=== PATIENT | female | born 1960 | race Caucasian/White ===

== ENCOUNTER 2018-05-17 00:20 | Inpatient (IN) ==
[2018-05-17] MEDS ORDERED: Acetaminophen 325 MG Tablet PO PRN (05:35)
--- NOTE | 2018-05-17 10:17 | CT ---
EXAM DATE: 05/17/2018 10:10 AM EST AGE/SEX: 58 years / Female INDICATIONS: Short of breath. CLINICAL DATA: This is the patient's initial encounter. Patient reports that signs and symptoms have been present for 3 days and indicates a pain score of 0/10. MEDICAL/SURGICAL HISTORY: Chronic obstructive pulmonary disease. . Knee surgery. RADIATION DOSE: 10.11 CTDI (mGy) COMPARISON: [facility], CHEST 1V SINGLE AP, 05/17/2018. . TECHNIQUE: Volumetric scanning was performed using a multi-row detector CT scanner during bolus infu kelly of 65 ml Omnipaque 350 (iohexol) nonionic water-soluble contrast as a single exam dose. The bettye a was post processed with a variety of visualization algorithms including full volume maximum intensi ty projection and sliding thin slab reformation. Using automated exposure control and adjustment of the mA and/or kV according to patient size, radiation dose was kept as low as reasonably achievable t o obtain optimal diagnostic quality images. DICOM format image data is available electronically for review and comparison. FINDINGS: Right apical density is present measures 3.2 cm in size probable area of scar, however underlying mas s is difficult to exclude. There is also irregular density in the left apex of the lung extending to the pleural surfaces probable scar as well. Slight atelectasis and/or infiltrate is seen right middle lobe. There is no evidence of PE for technique. There is no pleural effusion. No appreciable pathological adenopathy is seen within the mediastinum. CONCLUSION: There is slight atelectasis and/or infiltrate right middle lobe and probable scar in the apices of the lungs. Repeat noncontrast chest CT is recommended in 6 months. Electronically signed by: Bruno Olivia MD Board Certified Radiologist 05/17/2018 10:16 AM EST
--- NOTE | 2018-05-17 12:04 | P.HPIM ---
History of Present Illness Primary Care Physician: No Primary Care Physician Chief Complaint: Respiratory Distress History of Present Illness: Mrs. Parker is a 58 year old female. She has a past medical history of chronic respiratory failure, and she is oxygen dependent at baseline. Currently she has come in secondary to complications of influenza. COPD exacerbation is present. Acute hypoxia has been present. She is unable to lay flat and to make herself comfortable and breathing she is in a tripod position. No other complaints today. Inpatient Certification Inpatient Certification: I certify that the inpatient services were ordered in accordance with Medicare regulations governing the order. This includes certification that hospital inpatient services are reasonable and necessary and in the case of services not specified as inpatient-only under 42 CFR 419.22(n), that they are appropriately provided as inpatient services in accordance to with the 2-midnight benchmark under 43 CFR 412.3(e) Estimated Total Length of Stay (Days): 2 Plans for Post Hospital Care: Home Review of Systems Constitutional: No fevers, no chills no night sweats, no fatigue, no weakness Eyes: No eye pain, no blurry vision, no loss of vision ENT: No sore throat, no ear pain, no rhinorrhea Cardiovascular: No chest pain, no tachycardia, no palpitations, no syncope Respiratory: Shortness of breath, wheezing, cough, respiratory distress Gastrointestinal: No abdominal pain, no black tarry stools, no bright red blood per rectum, no vomiting, no diarrhea Musculoskeletal: No joint pain, no muscle cramps, no stiffness Integumentary: No rash, no ulcers, no drainage Neurologic: No sensory loss, no loss of motor function, no dizziness Psychiatric: No behavioral changes, no hallucinations, no suicidal ideations [facility] Medical History Medical History COPD (chronic obstructive pulmonary disease) (Acute) Menopausal state (Acute) Surgical History Surgical History H/O knee surgery (Acute) Family History Family History Other Osteoarthritis Social History Social History Substance History: No History of Abuse Second Hand Smoke Exposure: Yes Smoking Status: Current every day smoker Tobacco Type: Cigarettes How Often Do You Have a Drink Containing Alcohol: Monthly or less Medications and Allergies Allergies Allergy/AdvReac Type Severity Reaction Status Date / Time No Known Allergies Allergy Verified 05/17/18 00:31 Home Medications Medication Instructions Recorded Confirmed Type Doxy-100 100 mg PO BID 05/17/18 05/17/18 History Oxygen 05/17/18 05/17/18 History Tessalon Perles 100 mg PO TID 05/17/18 05/17/18 History Zithromax 250 mg PO DAILY 05/17/18 05/17/18 History albuterol sulfate 1.25 mg INHALATION QID PRN 05/17/18 05/17/18 History albuterol sulfate 2 mcg INHALATION Q6HR PRN 05/17/18 05/17/18 History prednisone 4 mg PO UD DOSE PK 05/17/18 05/17/18 History Active Medications: Active Medications Acetaminophen (Tylenol) 650 mg PO Q4H PRN PRN Reason: Fever or Headache Albuterol (Duoneb Neb (Abelardo)) 1 ampul NEB Q6HR WHILE AWAKE NEB ABELARDO Last Admin: 05/17/18 08:54 Dose: 1 ampul Ondansetron HCl (Zofran Inj) 4 mg IV.PUSH Q6H PRN PRN Reason: NAUSEA OR VOMITING Sodium Chloride (Ns Flush) 2 ml IV.FLUSH BID ABELARDO Sodium Chloride (Ns Flush) 2 ml IV.FLUSH PRN PRN PRN Reason: FLUSH AFTER USING IV ACCESS Physical Exam Vital signs: Vital Signs 05/17/18 08:00 05/17/18 08:18 05/17/18 08:54 Temperature 96.8 F L Pulse Rate 101 H 91 H 95 H Respiratory Rate 20 14 Blood Pressure 121/78 Pulse Oximetry 95 98 05/17/18 09:06 Temperature Pulse Rate Respiratory Rate Blood Pressure Pulse Oximetry 94 L Narrative: GENERAL: NAD, A&Ox3 HEAD: Normocephalic. NECK: Supple, trachea midline. No lymphadenopathy. EYES: No scleral icterus. No injection or drainage. CARDIOVASCULAR: Regular rate and rhythm without murmurs, gallops, or rubs. RESPIRATORY: Breath sounds equal bilaterally. Patient has accessory muscle use. Wheezing bilaterally. Tripod position. GASTROINTESTINAL: Abdomen soft, non-tender, nondistended. MUSCULOSKELETAL: No cyanosis, or edema. SKIN: Warm and dry. NEURO: No focal neurological deficits. Results Imaging Impressions Chest CTA 05/17/18 00:00 CONCLUSION: There is slight atelectasis and/or infiltrate right middle lobe and probable scar in the apices of the lungs. Repeat noncontrast chest CT is recommended in 6 months. Caprini VTE Risk Assessment Caprini VTE Risk Assessment: No/Low Risk (score <= 1) Caprini Risk Assessment Model: Point Value = 1 Point Value = 2 Point Value = 3 Point Value = 5 Age 41-60 Minor surgery BMI > 25 kg/m2 Swollen legs Varicose veins or History of unexplained or recurrent spontaneous Oral contraceptives or hormone replacement Sepsis (< 1 month) Serious lung disease, including pneumonia (< 1 month) Abnormal pulmonary function Acute myocardial infarction Congestive heart failure (< 1 month) History of inflammatory bowel disease Medical patient at bed rest Age 61-74 Arthroscopic surgery Major open surgery (> 45 min) Laparoscopic surgery (> 45 min) Malignancy Confined to bed (> 72 hours) Immobilizing plaster cast Central venous access Age >= 75 History of VTE Family history of VTE Factor V Leiden Prothrombin [id number] Lupus anticoagulant Anticardiolipin antibodies Elevated serum homocysteine Heparin-induced thrombocytopenia Other congenital or acquired thrombophilia Stroke (< 1 month) Elective arthroplasty Hip, pelvis, or leg fracture Acute spinal cord injury (< 1 month) Prophylaxis Regimen: Total Risk Factor Score Risk Level Prophylaxis Regimen 0-1 Low Early ambulation 2 Moderate Order ONE of the following: *Sequential Compression Device (SCD) *Heparin 5000 units SQ BID 3-4 Higher Order ONE of the following medications: *Heparin 5000 units SQ TID *Enoxaparin/Lovenox 40 mg SQ daily (WT < 150 kg, CrCl > 30 mL/min) *Enoxaparin/Lovenox 30 mg SQ daily (WT < 150 kg, CrCl > 10-29 mL/min) *Enoxaparin/Lovenox 30 mg SQ BID (WT < 150 kg, CrCl > 30 mL/min) AND/OR *Sequential Compression Device (SCD) 5 or more Highest Order ONE of the following medications: *Heparin 5000 units SQ TID (Preferred with Epidurals) *Enoxaparin/Lovenox 40 mg SQ daily (WT < 150 kg, CrCl > 30 mL/min) *Enoxaparin/Lovenox 30 mg SQ daily (WT < 150 kg, CrCl > 10-29 mL/min) *Enoxaparin/Lovenox 30 mg SQ BID (WT < 150 kg, CrCl > 30 mL/min) AND *Sequential Compression Device (SCD) Assessment and Plan Plan 58-year-old female admitted secondary to acute on chronic respiratory failure, with positive outpatient flu test. COPD exacerbation Influenza Chronic seasonal allergies Acute on chronic respiratory failure Hypoxia Bronchitis Likely etiology is related to influenza and seasonal allergies continue oxygen supplements as needed Schedule duo nebs When necessary albuterol Levaquin Systemic steroids Follow for improvement in respiratory status Follow for improvement in exertional tolerance next Tamiflu DVT prophylaxis SCDs H&P: Quality VTE Deep Vein Thrombosis/Pulmonary Embolism Present on Admission: No
[2018-05-17] MEDS ORDERED: Oseltamivir Phosphate 30 MG Capsule PO ONE ×2 (12:13→13:00)
[2018-05-17] MEDS ORDERED: MethylPREDNISolone Sod Succinate Inj 40 MG/ML Vial IV.PUSH ONE (13:00)
[2018-05-17] MEDS: Acetaminophen 325 MG Tablet PO PRN ×2 (13:42→19:59)
[2018-05-17] MEDS: Lactobacillus Acidophilus/L. Spores Tablet PO SCH ×2 (13:42→18:19)
[2018-05-17] MEDS: Levofloxacin 500 mg Premix Inj 500 MG/100 ML PIGGYBACK IV.SIG SCH (13:42)
[2018-05-17] MEDS: Benzonatate 100 MG Capsule PO PRN ×2 (13:55→19:59)
[2018-05-17] MEDS: MethylPREDNISolone Sod Succinate Inj 40 MG/ML Vial IV.PUSH SCH (20:02)
[2018-05-18 05:20] LABS: Baso % (Auto) 0.2 % (0.0-2.0); Eos % (Auto) 0.1 % (0.0-4.0); Hematocrit 36.5 % (35.0-46.0); Hemoglobin 12.8 gm/dL (11.6-15.3); Lymph # (Auto) 0.5 th/mm3 (1.0-4.8); Lymph % (Auto) 4.5 % (9.0-44.0); Mean Corpuscular Hemoglobin 32.2 pg (27.0-34.0); Mean Corpuscular Volume 91.8 fL (80.0-100.0); Mean Platelet Volume 7.7 fL (7.0-11.0); Mono # (Auto) 0.3 th/mm3 (0.0-0.9); Neut # (Auto) 10.5 th/mm3 (1.8-7.7); Neut % (Auto) 92.2 % (16.0-70.0); Platelet Count 160 th/mm3 (150-450); Red Blood Count 3.98 mil/mm3 (4.00-5.30); Red Cell Distribution Width 11.6 % (11.6-17.2); White Blood Count 11.3 th/mm3 (4.0-11.0)
[2018-05-18 05:32] LABS: Potassium 4.4 meq/L (3.5-5.1)
[2018-05-18 05:37] LABS: Calcium 8.8 mg/dL (8.5-10.1); Carbon Dioxide 32.5 meq/L (21.0-32.0)
[2018-05-18] MEDS: Lactobacillus Acidophilus/L. Spores Tablet PO SCH ×3 (09:28→17:05)
[2018-05-18] MEDS: Oseltamivir Phosphate 30 MG Capsule PO SCH (09:28)
[2018-05-18] MEDS: Acetaminophen 325 MG Tablet PO PRN ×3 (09:29→23:22)
[2018-05-18] MEDS: MethylPREDNISolone Sod Succinate Inj 40 MG/ML Vial IV.PUSH SCH ×2 (09:29→20:06)
--- NOTE | 2018-05-18 10:49 | P.PNIM ---
Subjective Interval history: Acute respiratory distress improved today. Patient not yet to baseline. She does notice improvement since time of admit. Potentially safe for discharge tomorrow if improvements continue. Physical Exam Vital signs: Vital Signs 05/17/18 11:47 05/17/18 12:00 05/17/18 14:12 Temperature 97.1 F L Pulse Rate 93 H 101 H Respiratory Rate 20 18 Blood Pressure 107/74 Pulse Oximetry 92 L 05/17/18 14:56 05/17/18 16:00 05/17/18 16:02 Temperature 96.6 F L Pulse Rate 97 H 97 H 96 H Respiratory Rate 18 20 Blood Pressure 106/78 Pulse Oximetry 93 L 98 05/17/18 19:37 05/17/18 20:00 05/17/18 20:25 Temperature 97.9 F Pulse Rate 110 H 99 H 111 H Respiratory Rate 18 20 Blood Pressure 120/64 Pulse Oximetry 94 L 93 L 05/18/18 00:00 05/18/18 04:00 05/18/18 07:30 Temperature 97.5 F L 97.6 F Pulse Rate 86 76 79 Respiratory Rate 20 20 16 Blood Pressure 133/68 134/69 Pulse Oximetry 95 94 L 96 05/18/18 08:00 Temperature 97 F L Pulse Rate 92 H Respiratory Rate 16 Blood Pressure 115/60 Pulse Oximetry 93 L Intake & Output 05/17/18 05/18/18 05/18/18 18:59 06:59 18:59 Intake Total 860 / 860 240 / 240 Balance 860 / 860 240 / 240 Weight 62.2 kg 62.4 kg Intake: IV 100 / 100 Levaquin 500 mg Premix Inj 500 100 / 100 mg In 100 ml @ 100 mls/hr IV. SIG Q24H DRAGAN Rx#:[id number] Oral 760 / 760 240 / 240 Other: # Voids 2 2 Weight On Admission 62.2 kg Narrative: GENERAL: NAD, A&Ox3 HEAD: Normocephalic. NECK: Supple, trachea midline. No lymphadenopathy. EYES: No scleral icterus. No injection or drainage. CARDIOVASCULAR: Regular rate and rhythm without murmurs, gallops, or rubs. RESPIRATORY: Breath sounds equal bilaterally. Patient has accessory muscle use. Wheezing bilaterally. Tripod position. GASTROINTESTINAL: Abdomen soft, non-tender, nondistended. MUSCULOSKELETAL: No cyanosis, or edema. SKIN: Warm and dry. NEURO: No focal neurological deficits. Results Labs CBC & Chem 7: 05/18/18 05:00 05/18/18 05:00 Assessment and Plan Plan 58-year-old female admitted secondary to acute on chronic respiratory failure, with positive outpatient flu test. Follow for further improvement. Possible discharge tomorrow. Continue oxygen supply. COPD exacerbation Influenza Chronic seasonal allergies Acute on chronic respiratory failure Hypoxia Bronchitis Likely etiology is related to influenza and seasonal allergies continue oxygen supplements as needed Schedule duo nebs When necessary albuterol Levaquin Systemic steroids Follow for improvement in respiratory status Follow for improvement in exertional tolerance next Tamiflu DVT prophylaxis SCDs Progress Note: Quality VTE Deep Vein Thrombosis/Pulmonary Embolism Present on Admission: No
[2018-05-18] MEDS: Levofloxacin 500 mg Premix Inj 500 MG/100 ML PIGGYBACK IV.SIG SCH (12:41)
[2018-05-18] MEDS: Benzonatate 100 MG Capsule PO PRN (12:41)
[2018-05-19] MEDS: Benzonatate 100 MG Capsule PO PRN (02:16)
[2018-05-19] MEDS: Lactobacillus Acidophilus/L. Spores Tablet PO SCH (09:21)
[2018-05-19] MEDS: Oseltamivir Phosphate 30 MG Capsule PO SCH (09:21)
[2018-05-19] MEDS: MethylPREDNISolone Sod Succinate Inj 40 MG/ML Vial IV.PUSH SCH (09:22)
[2018-05-19 09:48] VITALS: BP 132/67; RESP 20; TEMP 96.1; O2SAT 93
--- NOTE | 2018-05-19 11:28 | P.DS ---
DS: Providers Date of admission: 05/17/18 10:15 Primary care physician: No Primary Care Physician Brief History from admission: Mrs. Parker is a 58 year old female. She has a past medical history of chronic respiratory failure, and she is oxygen dependent at baseline. Currently she has come in secondary to complications of influenza. COPD exacerbation is present. Acute hypoxia has been present. She is unable to lay flat and to make herself comfortable and breathing she is in a tripod position. No other complaints today. DS: Summary Mrs. Parker is a 58-year-old female. She came in secondary to COPD exacerbation. This was secondary to influenza. Patient is oxygen dependent at baseline and was in acute respiratory distress respiratory failure when seen. With antibiotic coverage, steroids, and Tamiflu the patient has been improving through time. She is now weaned down to her baseline oxygen use. No recent acute exacerbations in the last 24 hours. Patient's medically stable and cleared for discharge home today. Time Spent with Patient Total time spent providing and/or coordinating discharge services: Less than 30 minutes Quality: VTE Deep Vein Thrombosis/Pulmonary Embolism Present on Admission: No Results Impressions ITS Impressions Chest CTA 05/17/18 00:00 CONCLUSION: There is slight atelectasis and/or infiltrate right middle lobe and probable scar in the apices of the lungs. Repeat noncontrast chest CT is recommended in 6 months. Discharge Plan Discharge Disposition Patient Disposition: 01 Discharge Home Discharge Condition Condition: Stable Discharge Order Discharge Orders: Discharge Order (Routine); Ordered 05/19/18 Ordered By: Daniel Rincon Discharge Details Anticipated Discharge Date: 05/19/18 Discharge Comment: Prescriptions transmitted to pharmacy. Physicians Team Primary Care Provider: [facility] [place] Attending Provider: Daniel Rincon Rxs /Orders / Referrals /Forms Prescriptions: New oseltamivir [Tamiflu] 30 mg Capsule 30 mg PO DAILY Qty: 3 RF: 0 albuterol sulfate 2.5 mg /3 mL (0.083 %) Solution For Nebulization 2.5 mg NEB Q6HR NEB PRN (Reason: Dyspnea or Wheezing) Qty: 30 RF: 0 acidophilus-sporogenes [Acidophilus Ex Str (L. sporog)] 35 million- 25 million cell Tablet 1 tab PO TID Qty: 21 RF: 0 levofloxacin [Levaquin] 500 mg tablet 500 mg PO DAILY 3 Days Qty: 3 RF: 0 methylprednisolone [Medrol (Carlos)] 4 mg tablets,dose pack See Label Instructions PO PER PKG DIR Qty: 21 RF: 0 Continue albuterol sulfate 1.25 mg/3 mL Solution For Nebulization 1.25 mg INHALATION QID PRN (Reason: Dyspnea) RF: 0 Oxygen RF: 0 prednisone 10 mg Tablets,Dose Pack 4 mg PO UD DOSE PK RF: 0 Doxy-100 100 mg PO BID RF: 0 Tessalon Perles 100 mg PO TID RF: 0 Zithromax 250 mg PO DAILY RF: 0 albuterol sulfate 2 mcg Inhalation Q6HR PRN (Reason: difficulty breathing) RF: 0 Referrals: [facility],No [Primary Care Provider] - See Instructions Discharge Interventions Interventions: Discharge Planning - Case Management Last Done: 05/17/18 15:03 Status ED Status: Admitted Observation Patient
[2018-05-19 12:22] VITALS: PULSE 97
== END 2018-05-19 12:23 | disposition home or self-care (01) | DRG 189 ==
LOC: PH3 00:20 → PHEDDLT 00:20
PROVIDERS: ADMIT Hospitalist; ATTEND Hospitalist
CPT/HCPCS: 36600; 71010; 71045; 71275; 80048; 80053; 82805; 84484; 85025; 85379; 87275; 87276; 87804; 90774; 90784; 93005; 94640; 94664; 94665; 96374; 99285; C8952; J1956; J2920; J2930; Q9967